=== PATIENT | female | born 2000 | race Caucasian/White ===

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

== ENCOUNTER 2020-02-17 20:43 | Emergency (ER) | payer OTHER, SELFPAY ==
[2020-02-18 16:16] LABS: SARS-CoV-2 MS2 Positive; SARS-CoV-2 N Gene Negative; SARS-CoV-2 S Gene Negative; SARS-CoV-2 orf1ab Negative
== END 2020-02-17 21:39 | disposition home or self-care (01) ==
LOC: ERS 20:43
DX: R11.0 Nausea (principal); R05 Cough; Z20.828 Contact with and (suspected) exposure to other viral communicable diseases
CPT/HCPCS: 87635; 99283; U0003